=== PATIENT | male | born 1985 | race Caucasian/White ===

== ENCOUNTER 2024-06-20 10:39 | Emergency (ER) | payer OTHER, MEDICAID, SELFPAY ==
[2024-06-20 11:07] VITALS: BP 134/94; PULSE 98; RESP 16; TEMP 37; O2SAT 100; BMI 24.7
[2024-06-20 11:51] LABS: Add Manual Diff / Slide Review NO; Basophils Absolute Auto 100 /uL (0-100); Basophils Percent Auto 0.8 % (0-2); Eosinophils Absolute Auto 200 /uL (0-450); Eosinophils Percent Auto 3.5 % (2-4); Hematocrit 42.5 % (41-53); Hemoglobin 14.6 g/dL (13.5-17.5); Lymphocytes Absolute Auto 1800 /uL (1100-4500); Lymphocytes Percent Auto 27.4 % (25-40); Mean Corpuscular HGB Conc 34.2 % (30-36); Mean Corpuscular Hemoglobin 34.1 PG (26-34); Mean Corpuscular Volume 99.6 fL (80-100); Monocytes Absolute Auto 800 /uL (0-900); Monocytes Percent Auto 11.7 % (3-14); Neutrophils Absolute Auto 3800 /uL (1500-7000); Neutrophils Percent Auto 56.6 % (50-75); Platelet Count 275 X10^3/uL (150-400); Red Blood Cell Count 4.27 X10^6/uL (4.5-5.9); Red Cell Distribution Width 12.4 % (11.6-14.8); White Blood Cell Count 6.7 X10^3/uL (4.5-11.0)
[2024-06-20 11:59] LABS: Ur Creatinine Normal (Normal); Ur Specific Gravity Normal (Normal); Urine Tetrahydrocannabinol Positive (Negative); Urine pH Normal (Normal)
[2024-06-20 12:00] LABS: UR Morphine/Opiate cutoff 300 Negative (Negative); Urine Amphetamines Positive (Negative); Urine Barbiturates Negative (Negative); Urine Benzodiazepines Negative (Negative); Urine Cocaine Negative (Negative); Urine MDMA Negative (Negative); Urine Methadone Negative (Negative); Urine Methamphetamines Positive (Negative); Urine Oxycodone Negative (Negative); Urine Phencyclidine Negative (Negative); Urine Tricyclic Antidepressant Negative (Negative)
[2024-06-20 12:19] LABS: Acetaminophen < 10 ug/mL (10-30); Alanine Aminotransferase 22 IU/L (<50); Albumin 4.2 g/dL (3.5-5.0); Albumin Globulin Ratio 1.7 (1.0-2.8); Alkaline Phosphatase 67 U/L (38-126); Aspartate Aminotransferase 23 IU/L (17-59); BUN Creatinine Ratio 10.5 (6-22); Bilirubin Total 0.4 mg/dL (0.2-1.3); Blood Urea Nitrogen 10 mg/dL (9-20); Calcium 8.9 mg/dL (8.4-10.2); Carbon Dioxide 25 mmol/L (22-32); Chloride 107 mmol/L (98-107); Estimated Glomerular Filt Rate > 60 mL/min (>60); Ethanol (ETOH) < 10 mg/dL; Globulin 2.5 g/dL (1.7-4.1); Glucose 105 mg/dL (70-100); HEMOLYSIS < 15 (0-50); Potassium 4.2 mmol/L (3.4-5.1); Salicylate < 1.0 mg/dL (<20); Sodium 139 mmol/L (137-145); Total Protein 6.7 g/dL (6.3-8.2)
[2024-06-20 12:35] LABS: Free T4, Direct Thyroxine 0.98 ng/dL (0.78-2.19)
--- NOTE | 2024-06-20 12:59 | ED_ITS ---
HPI - Psych General Chief Complaint: Psychiatric Symptoms Stated Complaint: paranoia-delusions wants psych Time Seen by Provider: 06/20/24 12:58 Source: patient Mode of arrival: Ambulatory Limitations: no limitations History of Present Illness HPI Narrative: 39-year-old male with history of chronic methamphetamine use, patient presents with complaints of paranoia thoughts of people are out to get him and kill him. Notes he thinks the is protecting him. Has had multiple driving violation because of wheezing and out of traffic to get away from people. Patient presents with his family asking for psychiatric evaluation. Patient does not think that he has not any melena health disorders. States he has seen a marriage counselor but no other mental health counseling in the past. He notes he has been using methamphetamines for some time. He does not seem to correlate his methamphetamine use with potential paranoia. He denies any other medical issues, states he has been told his blood pressure has been high in the past he has not on any daily medications. No prior surgeries reported. Uses tobacco daily denies any regular alcohol use. States he uses marijuana and methamphetamines. Denies any thoughts of harming others or himself patient is alert, well-groomed and cooperative. He is present with his father in law at bedside. Related Data Allergies Allergy/AdvReac Type Severity Reaction Status Date / Time No Known Allergies Allergy Uncoded 03/02/18 12:41 Review of Systems Review of Systems ROS Unobtainable: All systems reviewed & are unremarkable except as noted in HPI and below Patient History Social History Smoking Status: Current every day smoker Smoking Status: Current every day smoker alcohol intake frequency: a few times a week Alcohol type: beer and hard liquor Substance Use Type: marijuana and methamphetamine Exam Narrative Exam Narrative: GENERAL: Alert and oriented x three, well-appearing male in mild distress. HEENT: Head normocephalic, atraumatic, EOMI, pupils reactive, face symmetric, moist mucous membranes NECK: Supple, full range of motion CARDIOVASCULAR: Regular rate and rhythm without murmurs, rubs or gallops. RESPIRATORY: Breath sounds equal bilaterally, no wheezes rales or rhonchi. ABDOMEN: Soft, nontender. Normoactive bowel sounds all 4 quadrants. No guarding or rebound, rigidity, no mass : No CVA tenderness EXTREMITIES: Normal range of motion, no clubbing or edema. Neurovascularly intact NEUROLOGICAL: Cranial nerves II through XII grossly intact. Moving all extremities SKIN: Warm, dry, no petechiae, no rashes or lesions. PSYCH: No HI or SI, does describe paranoid thoughts/delusions. Patient is able to hold conversation well but does not have good insight. Initial Vital Signs Initial Vital Signs: Vital Signs Temperature 98.6 F 06/20/24 11:07 Pulse Rate 98 H 06/20/24 11:07 Respiratory Rate 16 06/20/24 11:07 Blood Pressure 134/94 H 06/20/24 11:07 Pulse Oximetry 100 06/20/24 11:07 Oxygen Delivery Method Room Air 06/20/24 11:07 Course Orders Ordered: ED Orders 06/20/24 11:21 Consult to DIRECTOR OF REGIONAL SALES - [employer] Stat 06/20/24 11:43 Acetaminophen Stat Complete Blood Count AUTO DIFF Stat Comprehensive Metabolic Panel Stat Ethanol (ETOH) Stat Free T4, Direct Thyroxine Stat Salicylate Stat Thyroid Stimulating Hormone Stat 06/20/24 11:44 Urine Drug Screen, Rapid Stat Vital Signs Vital signs: Vital Signs - 8 hr 06/20/24 11:07 06/20/24 13:29 Temperature 98.6 F Pulse Rate 98 H 83 Respiratory Rate 16 18 Blood Pressure 134/94 H 132/94 H Pulse Oximetry 100 100 Oxygen Delivery Method Room Air Room Air MDM - Psych Lab Data 06/20/24 11:43 06/20/24 11:43 Labs: Lab Results 06/20/24 06/20/24 Range/Units 11:43 11:44 WBC 6.7 (4.5-11.0) X10^3/uL RBC 4.27 L (4.5-5.9) X10^6/uL Hgb 14.6 (13.5-17.5) g/dL Hct 42.5 (41-53) % MCV 99.6 (80-100) fL MCH 34.1 H (26-34) PG MCHC 34.2 (30-36) % RDW 12.4 (11.6-14.8) % Plt Count 275 (150-400) X10^3/uL Neut % (Auto) 56.6 (50-75) % Lymph % (Auto) 27.4 (25-40) % Beaver % (Auto) 11.7 (3-14) % Eos % (Auto) 3.5 (2-4) % Baso % (Auto) 0.8 (0-2) % Neut # (Auto) 3800 (1375-6212) /uL Lymph # (Auto) 1800 (8749-3193) /uL Beaver # (Auto) 800 (0-900) /uL Eos # (Auto) 200 (0-450) /uL Baso # (Auto) 100 (0-100) /uL Sodium 139 (137-145) mmol/L Potassium 4.2 (3.4-5.1) mmol/L Chloride 107 (98-107) mmol/L Carbon Dioxide 25 (22-32) mmol/L BUN 10 (9-20) mg/dL Creatinine 0.95 (0.66-1.25) mg/dL Estimated GFR > 60 (>60) mL/min BUN/Creatinine Ratio 10.5 (6-22) Glucose 105 H (70-100) mg/dL Calcium 8.9 (8.4-10.2) mg/dL Total Bilirubin 0.4 (0.2-1.3) mg/dL AST 23 (17-59) IU/L ALT 22 (<50) IU/L Alkaline Phosphatase 67 (38-126) U/L Total Protein 6.7 (6.3-8.2) g/dL Albumin 4.2 (3.5-5.0) g/dL Globulin 2.5 (1.7-4.1) g/dL Albumin/Globulin Ratio 1.7 (1.0-2.8) TSH 0.585 (0.47-4.68) uIU/mL Free T4 0.98 (0.78-2.19) ng/dL Salicylates < 1.0 (<20) mg/dL U Opiates 300ng/mL cut Negative (Negative) Ur Oxycodone Screen Negative (Negative) Urine Methadone Screen Negative (Negative) Acetaminophen < 10 (10-30) ug/mL Ur Barbiturates Screen Negative (Negative) U Tricyclic Antidepress Negative (Negative) Ur Phencyclidine Scrn Negative (Negative) Ur Amphetamines Screen Positive H (Negative) U Methamphetamines Scrn Positive H (Negative) Ur MDMA Scrn (Ecstasy) Negative (Negative) U Benzodiazepines Scrn Negative (Negative) Urine Cocaine Screen Negative (Negative) U Marijuana (THC) Screen Positive H (Negative) Urine pH Normal (Normal) Urine Specific Isabel Normal (Normal) Ethyl Alcohol < 10 ( - 10) mg/dL Ur Creatinine Normal (Normal) Urine Dip Bedside Urine Glucose Negative Bedside Urine Bilirubin - Negative Bedside Urine Ketone - Negative Urine Specific Isabel 1.025 Bedside Urine Occult Blood - Negative Bedside Urine pH 6.0 Bedside Urine Protein - Negative Bedside Urine Urobilinogen - Negative Bedside Urine Nitrite - Negative Bedside Urine Leukocytes - Negative Esterase MDM Narrative Medical decision making narrative: 39-year-old male presents with complaints of paranoia, patient does not endorse any SI or HI. Has been using methamphetamine recently. Patient comes for psychiatric evaluation at the request of his family. He is open to outpatient treatment. Did meet with DIRECTOR OF REGIONAL SALES today. CBC shows a white count of 6.7 hemoglobin of 14 platelets of 275, chemistries are negative glucose is 105, calcium is 8.9 LFTs are negative, TSH is 0.585. T4 0.98. Tylenol, salicylate and ETOH are negative, patient is positive for amphetamines methamphetamines and marijuana. Patient does have paranoia with delusions. No thoughts of harming self or others, has had some driving violation but no other significant high-risk factors. He came voluntarily with family requesting out evaluation. Discussed with patient he met with our social work faculty member but I do not have a psychiatrist here. He is medically cleared. Isn't seeking voluntary placement in his not detainable at this time. Did discuss with him and family at bedside that methamphetamine use can also cause paranoia. He is open to following up for evaluation. Resources were given to him as well as his family as he seems amenable to them helping him seek care. Discharge Plan Departure Patient Disposition: Home Clinical Impression: Paranoia, Methamphetamine use Activity Restrictions/Additional Instructions: I do recommend you follow-up with resources for mental health care as well as substance abuse. Please use the resources that Merly our social work faculty member gave you to follow-up. I encourage you to stop using methamphetamine this can also cause paranoid thoughts. There are lots of outpatient resources that maybe helpful. If you're feeling suicidal or having suicidal thoughts, contact the suicide hotline (this number can also be used to call for self-referral for counseling and resources): . You can return at any time if you feel your unsafe, if you are having thoughts of harming yourself or others, worsening thoughts, any visual hallucinations or other new or concerning changes. Stand Alone Forms: Patient Portal/API
[2024-06-20 13:11] LABS: Thyroid Stimulating Hormone 0.585 uIU/mL (0.47-4.68)
[2024-06-20 13:29] VITALS: BP 132/94; PULSE 83; RESP 18; O2SAT 100
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
== END 2024-06-20 13:30 | disposition home or self-care (01) ==
PROVIDERS: Emergency Provider Emergency Medicine
DX: F22 Delusional disorders (principal); F15.10 Other stimulant abuse, uncomplicated
CPT/HCPCS: 80053; 80305; 80320; 80329; 81003; 84439; 84443; 85025; 99283; G0480

== ENCOUNTER 2024-09-16 21:18 | Emergency (ER) | payer OTHER, MEDICAID, SELFPAY ==
[2024-09-16 21:37] VITALS: BP 143/90; PULSE 102; RESP 20; TEMP 38.3; O2SAT 98; BMI 25.8
[2024-09-16 22:04] LABS: Strep Grp A by PCR Rapid Negative (Negative)
[2024-09-16 22:32] LABS: Influenza A - CEPHEID Flu A NEGATIVE (NEGATIVE); Influenza B - CEPHEID Flu B NEGATIVE (NEGATIVE)
[2024-09-16 22:37] LABS: COVID-19 CEPHEID 4-PLEX PCR Negative (Negative)
[2024-09-17 00:03] VITALS: BP 144/94; PULSE 79; O2SAT 100
[2024-09-17 00:30] VITALS: BP 139/95; PULSE 67; O2SAT 99
[2024-09-17 01:00] VITALS: BP 143/91; PULSE 76; O2SAT 98
[2024-09-17 01:30] VITALS: PULSE 73; RESP 18; O2SAT 100
--- NOTE | 2024-09-17 01:58 | ED.URI ---
HPI - URI/Sore Throat General Chief Complaint: Upper Respiratory Symptoms Stated Complaint: strep throat fever x2 days Time Seen by Provider: 09/17/24 00:28 Source: patient Mode of arrival: Family Vehicle History of Present Illness HPI Narrative: 39-year-old male with loose upper anterior incisor, dental pain, no trauma recalled. Also has sore throat symptoms. No cough. No trouble swallowing. No neck pain, able to swallow his secretions. Denies chest pain or shortness of breath. Denies abdominal pain, nausea, vomiting, black stools, red stools. Not currently taking any antibiotics. He has not been recently seen by dentist. Related Data Previous Rx's Medication Instructions Recorded amoxicillin 500 mg tablet 500 mg PO TID #21 tabs 09/17/24 Allergies Allergy/AdvReac Type Severity Reaction Status Date / Time No Known Allergies Allergy Uncoded 09/16/24 21:42 Review of Systems Review of Systems Narrative: see HPI Patient History Social History Smoking Status: Current every day smoker Smoking Status: Current every day smoker tobacco type: cigarettes alcohol intake frequency: a few times a week Alcohol type: beer and hard liquor Substance Use Type: marijuana and methamphetamine Exam Narrative Exam Narrative: GENERAL: Well-developed patient, in mild distress. HEAD: Atraumatic. Normocephalic. EYES: Pupils equal round and reactive. Extraocular motions intact. No scleral icterus. No injection or drainage. ENT: Nose without bleeding, non traumatic appearing nasal bridge and ala. oropharynx with some erythema, symmetrical, no uvular edema, no palatal edema. No peritonsillar edema. No exudates. Poor dental caries in general. Loose upper left incisor tooth. NECK: Trachea midline. Non tender. Moves neck well, handles secretions well, normal phonation, no trismus CARDIOVASCULAR: Regular rate and rhythm without murmurs, gallops, or rubs. RESPIRATORY: Clear to auscultation. Breath sounds equal bilaterally. No wheezes, rales, or rhonchi. GASTROINTESTINAL: Abdomen soft, non-tender, nondistended. EXTREMITIES: No edema or joint tenderness. BACK: Nontender without deformity or crepitance. No flank tenderness. NEURO: AOx3. Motor functions grossly nonfocal SKIN: No rash or erythema of visible areas. Scattered facial lesions consistent with picking, non acneiform, with no cellulitis at this time Initial Vital Signs Initial Vital Signs: Vital Signs Temperature 100.9 F H 09/16/24 21:37 Pulse Rate 102 H 09/16/24 21:37 Respiratory Rate 20 09/16/24 21:37 Blood Pressure 143/90 H 09/16/24 21:37 Pulse Oximetry 98 09/16/24 21:37 Oxygen Delivery Method Room Air 09/16/24 21:37 Course Orders Ordered: Discontinued Medications Acetaminophen (Acetaminophen 325 Mg Tablet) 650 mg PO NOW ONE Stop: 09/17/24 02:23 Last Admin: 09/17/24 02:32 Dose: 650 mg Documented By: MACK Amoxicillin (Amoxicillin 250 Mg Capsule) 1,000 mg PO NOW ONE Stop: 09/17/24 02:27 Last Admin: 09/17/24 02:32 Dose: 1,000 mg Documented By: MACK Tramadol HCl (Tramadol 50 Mg Tablet) 50 mg PO NOW ONE Stop: 09/17/24 02:27 Last Admin: 09/17/24 02:32 Dose: 50 mg Documented By: MACK Tramadol HCl (Tramadol 50 Mg Prepack) 1 bottle MISC DIRECTED ONE Stop: 09/17/24 02:27 Last Admin: 09/17/24 02:32 Dose: 1 bottle Documented By: MACK Vital Signs Vital signs: Vital Signs - 8 hr 09/16/24 21:37 09/17/24 00:03 09/17/24 00:03 Temperature 100.9 F H Pulse Rate 102 H 79 Respiratory Rate 20 Blood Pressure 143/90 H 144/94 H Pulse Oximetry 98 100 Oxygen Delivery Method Room Air 09/17/24 00:30 09/17/24 00:30 09/17/24 01:00 Temperature Pulse Rate 67 Respiratory Rate Blood Pressure 139/95 H 143/91 H Pulse Oximetry 99 Oxygen Delivery Method 09/17/24 01:00 09/17/24 01:30 Temperature Pulse Rate 76 73 Respiratory Rate 18 Blood Pressure Pulse Oximetry 98 100 Oxygen Delivery Method MDM - URI/Sore Throat Lab Data Labs: Lab Results 09/16/24 Range/Units 21:45 SARS-CoV-2 (PCR) Negative (Negative) Influenza A (RT-PCR) Flu a negative (NEGATIVE) Influenza B (RT-PCR) Flu b negative (NEGATIVE) Group A Strep (PCR) Negative (Negative) MDM Narrative Medical decision making narrative: Sore throat, red pharynx, RSS negative, Covid/Flu negative. Poor dentition, upper left insicor tooth loose, generalized poor dentition. Oral Amox for dental caries, follow-up with dentist advissed. Return precaustions discsussed. Advised to not bite into hard foods to protect loose incisor, soft mechanical diet until seen by dentist. Discharge Plan Departure Patient Disposition: Home Clinical Impression: Dental caries, Sore throat, Loosening of tooth Instructions: DI for Tooth Decay, DI for Dental Pain Activity Restrictions/Additional Instructions: Loose upper left incisor that is painful, no trauma specifically recalled. Poor dentition noted on examination. Some redness to the throat, strep screen was negative. COVID/influenza swab was negative. No exudates seen on oropharyngeal exam. Neck movements well. Skin lesions consistent on the face with picking. No skin cellulitis changes seem obvious at this time. Consider dental caries, course of antibiotics for now with dental follow up advised. First dose antibiotic amoxicillin, prescription sent to your pharmacy for further course of the antibiotic. Take Tylenol and or Motrin as needed for pain control. Tramadol home pack provided for additional pain control measures if needed. Follow up with your dentist on Wednesday early this week advised. Return to this/nearest emergency department for any change worsening symptoms or any concerns prior Your left upper incisor is very loose, might very easily fall out, avoid biting into apples and hard materials. Consider soft mechanical diet until you seen by dental specialist. Prescriptions: New amoxicillin 500 mg tablet 500 mg PO TID Qty: 21 0RF Stand Alone Forms: Patient Portal/API
--- NOTE | 2024-09-17 01:59 | PC.NURSE ---
Pt resting quielty with eyes closed, resps even and not labored. No distress noted at this time. Pt remains connected to blood pressure and pulse ox monitors with alarms on and audible. Call light within reach. Male boarding room fixer in room resting also.
[2024-09-17] MEDS: ACETAMINOPHEN 325 MG TABLET 650 MG PO (02:32)
[2024-09-17] MEDS: AMOXICILLIN 250 MG CAPSULE 1000 MG PO (02:32)
[2024-09-17] MEDS: TRAMADOL 50 MG TABLET PO (02:32)
[2024-09-17] MEDS: TRAMADOL 50 MG PREPACK 1 BOTTLE MISC (02:32)
== END 2024-09-17 02:43 | disposition home or self-care (01) ==
PROVIDERS: Emergency Provider Emergency Medicine
DX: J02.9 Acute pharyngitis, unspecified (principal); K02.9 Dental caries, unspecified; K08.89 Other specified disorders of teeth and supporting structures
CPT/HCPCS: 87070; 87147; 87635; 87651; 99283